=== PATIENT | female | born 1960 | race Caucasian/White ===

== ENCOUNTER → 2022-11-24 | Outpatient (CLI) | payer BC ==
--- NOTE | 2022-11-24 15:35 | US ---
EXAMINATION TYPE: US pelvis complete transvag DATE OF EXAM: 11/24/2022 COMPARISON: NONE CLINICAL HISTORY: N95.0 POSTMENO BLEEDING. Patient was on control for night sweats and started vaginal bleeding TECHNIQUE: Transvaginal (TV) and Transabdominal (TA) . Transabdominal sonographic images of the pel vis were acquired. Transvaginal sonographic images were medically necessary to better assess the fol lowing anatomy: uterus and ovaries Date of LMP: unknown EXAM MEASUREMENTS: Uterus: 7.1 x 5.3 x 3.1 cm Endometrial Stripe: 0.3 cm Right Ovary: unable to visualize Left Ovary: unable to visualize 1. Uterus: Anteverted hypoechoic area (?fibroid) posterior fundus = 0.7 x 0.6 x 0.6cm. fluid withi n cervix 2. Endometrium: fluid within 3. Right Ovary: Obscured by overlying bowel gas 4. Left Ovary: Obscured by overlying bowel gas 5. Bilateral Adnexa: appears wnl 6. Posterior cul-de-sac: wnl IMPRESSION: 1. Hypoechoic 0.7 cm lesion within the posterior uterus favored to represent a uterine fibroid. 2. Small amount of complex fluid demonstrated within the cervical canal likely representing blood pro ducts. Direct visualization is recommended. 3. Nonvisualization of both ovaries due to overlying bowel gas. 4. Endometrium is within normal limits in thickness with trace simple-appearing fluid identified.
== END | disposition home or self-care (01) ==
LOC: RADUSWWP 14:48
PROVIDERS: ATTEND Family Medicine
DX: N85.9 Noninflammatory disorder of uterus, unspecified (principal); N95.0 Postmenopausal bleeding
CPT/HCPCS: 76830; 76856

== ENCOUNTER 2024-02-09 20:40 | Emergency (ER) | payer BC, OTHER ==
--- NOTE | 2024-02-09 20:53 | ED ---
General Adult HPI - General Source: patient, RN notes reviewed Mode of arrival: ambulatory Limitations: no limitations <Licha Braun - Last Filed: 02/09/24 20:53> <Francine Hermosillo - Last Filed: 02/10/24 01:07> - General Chief complaint: Drug Screen Stated complaint: Drug test petition by employer Time Seen by Provider: 02/09/24 20:53 - History of Present Illness Initial comments: Quick note: Patient is a 63-year-old female presenting to the ER with a chief complaint of drug screen. Patient had a fall at work and employer is requesting drug screen. (Licha Braun) 63-year-old female presenting for employer requested drug screen. Patient was at work today and missed the last step coming down from a ladder. This caused her to fall backwards and hit her right elbow. She did not hit her head, no loss of consciousness or blood thinners. She states that she was seen at [facility] for her elbow injury and was cleared. She is now here only for her drug test. The fall occurred around 5:00 this evening. No other complaints. (Francine Hermosillo) - Related Data Allergies Allergy/AdvReac Type Severity Reaction Status Date / Time No Known Allergies Allergy Verified 02/09/24 20:44 Review of Systems ROS Other: All systems not noted in ROS Statement are negative. <Licha Braun - Last Filed: 02/09/24 20:53> ROS Other: All systems not noted in ROS Statement are negative. <Francine Hermosillo - Last Filed: 02/10/24 01:07> ROS Statement: Those systems with pertinent positive or pertinent negative responses have been documented in the HPI. Past Medical History Past Medical History: No Reported History History of Any Multi-Drug Resistant Organisms: None Reported Past Surgical History: Section, Orthopedic Surgery, Tonsillectomy Past Psychological History: No Psychological Hx Reported Smoking Status: Never smoker Past Alcohol Use History: Occasional Past Drug Use History: None Reported <Licha Braun - Last Filed: 02/09/24 20:53> General Exam Limitations: no limitations <Licha Braun - Last Filed: 02/09/24 20:53> Limitations: no limitations General appearance: alert, in no apparent distress Head exam: Present: atraumatic, normocephalic Eye exam: Present: normal appearance, EOMI Neck exam: Present: normal inspection Respiratory exam: Absent: respiratory distress Cardiovascular Exam: Present: regular rate Extremities exam: Present: normal inspection, full ROM Neurological exam: Present: alert, oriented X3 Psychiatric exam: Present: normal affect, normal mood Skin exam: Present: normal color <Francine Hermosillo - Last Filed: 02/10/24 01:07> - General Exam Comments Initial Comments: Visual Physical Exam Vital signs reviewed General: Well-appearing, nontoxic, no acute distress. Head: Normocephalic, atraumatic Eyes: PERRLA, EOMI ENT: Airway patent Chest: Nonlabored breathing Skin: No visual rash, normal skin tone Neuro: Alert and oriented 3 Musculoskeletal: No gross abnormalities (Licha Braun) Course Vital Signs 02/09/24 20:41 Temperature 98.2 F Pulse Rate 81 Respiratory 18 Rate Blood Pressure 144/84 O2 Sat by Pulse 100 Oximetry Medical Decision Making <Licha Braun - Last Filed: 02/09/24 20:53> <Francine Hermosillo - Last Filed: 02/10/24 01:07> - Medical Decision Making I performed the quick note portion of this chart. Electronically signed by Licha Braun PA-C (Licha Braun) Was pt. sent in by a medical professional or institution (KATHIE Chacko, [employer], urgent care, hospital, or fdc...) When possible be specific @ -No Did you speak to anyone other than the patient for history (EMS, parent, family, police, friend...)? What history was obtained from this source @ -No Did you review nursing and triage notes (agree or disagree)? Why? @ -I reviewed and agree with nursing and triage notes Were old charts reviewed (outside hosp., previous admission, EMS record, old EKG, old radiological studies, urgent care reports/EKG's, fdc records)? Report findings @ -No old charts were reviewed Differential Diagnosis (chest pain, altered mental status, abdominal pain women, abdominal pain men, vaginal bleeding, weakness, fever, dyspnea, syncope, headache, dizziness, GI bleed, back pain, seizure, CVA, palpatations, mental health, musculoskeletal)? @ -Not applicable EKG interpreted by me (3pts min.). @ -As above X-rays interpreted by me (1pt min.). @ -None done CT interpreted by me (1pt min.). @ -None done U/S interpreted by me (1pt. min.). @ -None done What testing was considered but not performed or refused? (CT, X-rays, U/S, labs)? Why? @ -None What meds were considered but not given or refused? Why? @ -None Did you discuss the management of the patient with other professionals (professionals i.e. DrSamanta, PA, [employer], lab, RT, psych nurse, social work instructor, rn anesthetist, teacher, youth corrections officer, insurance case manager)? Give summary @ -No Was smoking cessation discussed for >3mins.? @ -No Was critical care preformed (if so, how long)? @ -No Were there social determinants of health that impacted care today? How? (Homelessness, low income, unemployed, alcoholism, drug addiction, transportation, low edu. Level, literacy, decrease access to med. care, fci, rehab)? @ -No Was there de-escalation of care discussed even if they declined (Discuss DNR or withdrawal of care, Hospice)? DNR status @ -No What co-morbidities impacted this encounter? (DM, HTN, Smoking, COPD, CAD, Cancer, CVA, ARF, Chemo, Hep., AIDS, mental health diagnosis, sleep apnea, morbid obesity)? @ -None Was patient admitted / discharged? Hospital course, mention meds given and route, prescriptions, significant lab abnormalities, going to OR and other pertinent info. @ -63-year-old female presenting for work ordered drug test. She missed the last step on a ladder and fell hurting her elbow. She has already been evaluated at [facility]. She is only here for drug screening. No other complaints. Discharged. Undiagnosed new problem with uncertain prognosis? @ -No Drug Therapy requiring intensive monitoring for toxicity (Heparin, Nitro, Insulin, Cardizem)? @ -No Were any procedures done? @ -No Diagnosis/symptom? @ -Encounter for drug screening Acute, or Chronic, or Acute on Chronic? @ -Acute Uncomplicated (without systemic symptoms) or Complicated (systemic symptoms)? @ -Uncomplicated Side effects of treatment? @ -No Exacerbation, Progression, or Severe Exacerbation? @ -No Poses a threat to life or bodily function? How? (Chest pain, USA, MD, pneumonia, PE, COPD, DKA, ARF, appy, cholecystitis, CVA, Diverticulitis, Homicidal, Suicidal, threat to staff... and all critical care pts) @ -No (Francine Hermosillo) Disposition <Licha Braun - Last Filed: 02/09/24 20:53> Is patient prescribed a controlled substance at d/c from ED?: No Time of Disposition: 21:10 <Francine Hermosillo - Last Filed: 02/10/24 01:07> Clinical Impression: Encounter for drug screening Disposition: HOME SELF-CARE Condition: Good Additional Instructions: Follow-up with PCP. Report back to ER with any new or worsening symptoms. Referrals: None,Stated [Primary Care Provider] - 1-2 days
[2024-02-09 21:14] VITALS: BP 144/84; PULSE 81; RESP 18; TEMP 98.2
== END 2024-02-09 21:20 | disposition home or self-care (01) ==
LOC: EC 20:40
DX: Z51.81 Encounter for therapeutic drug level monitoring (principal)
CPT/HCPCS: 99281; 99282

== ENCOUNTER → 2025-01-24 | Outpatient (CLI) | payer BC ==
--- NOTE | 2025-01-24 13:30 | CT ---
EXAMINATION TYPE: CT hip RT wo con DATE OF EXAM: 01/24/2025 COMPARISON: None. CLINICAL INDICATION: Female, 64 years old with history of S79.911D INJURY RIGHT HIP; PHH, Chronic rig ht hip pain, injury CT DLP: 335 mGycm Automated exposure control for dose reduction was used. FINDINGS: No acute displaced fracture in the right hip. Moderate axial joint space loss. Mild acetabular spurri ng. No significant subchondral cystic change. Femoral head shape is maintained. No joint effusion. Small bony projection or enthesopathy from the superior aspect of the greater trochanter. Mild/modera te fat stranding at this level is present consistent with insertional tendinosis. Muscle just superio r to this shows mild to moderate generalized atrophy. No groin hernia or adenopathy is seen. No free fluid in the pelvis. IMPRESSION: As above. [facility], , 01/24/2025 1:27 PM
== END | disposition home or self-care (01) ==
LOC: RADCTMAIN 10:32
PROVIDERS: ATTEND Family Medicine
DX: S79.911D Unspecified injury of right hip, subsequent encounter (principal); M62.58 Muscle wasting and atrophy, not elsewhere classified, other site; M25.751 Osteophyte, right hip

== ENCOUNTER → 2025-03-12 | Outpatient (CLI) | payer BC ==
--- NOTE | 2025-03-13 08:45 | US ---
EXAMINATION TYPE: US venous doppler duplex LE LT DATE OF EXAM: 03/12/2025 4:26 PM COMPARISON: NONE CLINICAL INDICATION: Female, 64 years old with history of I80.9 PHLEBITIS AND THROMBOPHLEBITIS; Left leg pain. No redness or swelling. Not on blood thinners. No injury., Pain TECHNIQUE: The lower extremity deep venous system is examined utilizing real time linear array sonog todd with graded compression, color doppler sonography, and spectral doppler. SIDE PERFORMED: Left FINDINGS: VESSELS IMAGED: Common Femoral Vein Deep Femoral Vein Greater Saphenous Vein * Femoral Vein Popliteal Vein Small Saphenous Vein * Proximal Calf Veins Posterior tibial veins (* superficial vessels) Left Leg: Negative for DVT, Color Doppler imaging shows patency of the vessels. Spectral waveforms a re within normal limits. IMPRESSION: No evidence for DVT within the left lower extremity. [facility], , 03/13/2025 8:42 AM
== END | disposition home or self-care (01) ==
LOC: RADUSWWP 16:03
PROVIDERS: ATTEND Family Medicine
DX: I80.9 Phlebitis and thrombophlebitis of unspecified site (principal)